=== PATIENT | female | born 1950 | race Caucasian/White ===

== ENCOUNTER 2024-01-02 13:23 | Inpatient (IN) ==
[2024-01-02 14:15] LABS: Basophils # (Auto) 0 K/mcL (0.00-0.30); Basophils % (Auto) 0 % (0.0-2.0); Eosinophils # (Auto) 0.01 K/mcL (0.00-0.70); Eosinophils % (Auto) 0.1 % (0.0-7.0); Hematocrit 31.6 % (34.1-44.9); Hemoglobin 9.8 g/dL (11.2-15.7); Lymphocytes # (Auto) 1.11 K/mcL (1.50-4.80); Lymphocytes % (Auto) 7.8 % (15.5-49.0); Mean Cell Volume 95.8 fL (80.0-100.0); Mean Platelet Volume 9.2 fL (8.8-12.5); Monocytes % (Auto) 7.8 % (1.0-12.0); Neutrophils % (Auto) 83.7 % (38.0-78.0); Platelet Count 288 K/mcL (140-440); WBC 14.2 K/mcL (4.5-11.0)
[2024-01-02 14:40] LABS: ALT/SGPT 26 U/L (<40); AST/SGOT 71 U/L (<32); Albumin 3.4 gm/dL (3.2-5.2); Albumin/Globulin Ratio 1.1 (1.0-2.3); Alkaline Phosphatase 124 U/L (39-117); Bilirubin,Total 0.7 mg/dL (0.1-1.0); Blood Urea Nitrogen 33 mg/dL (8-23); Calcium 9.2 mg/dL (8.6-10.4); Carbon Dioxide 17 mmol/L (22-30); Chloride 100 mmol/L (96-108); Globulin 3.2 gm/dL (2.2-3.7); Glomerular Filtration Rate 10; Glucose 132 mg/dL (70-105); Potassium 4.3 mmol/L (3.3-5.1); Sodium 134 mmol/L (133-145)
[2024-01-02 14:51] LABS: Creatine Kinase 2012 U/L (24-170); INR 1.1 (0.9-1.1); Prothrombin Time 14.1 sec (11.9-14.5)
[2024-01-02] MEDS: 0.9 % SODIUM CHLORIDE 1,000 ML IV ONE ×2 (15:17→17:11)
[2024-01-02 16:21] LABS: Appearance,Urine Turbid (Clear); Bacteria,Urine Few /hpf (0); Bilirubin,Urine Small mg/dL (Negative); Color,Urine Yellow; Culture Indicated,Urine Yes; Glucose,Urine (UA) Negative (Negative); Ketones,Urine Trace mg/dL (Negative); Leukocyte Esterase,Urine Large /uL (Negative); Nitrate,Urine Positive (Negative); PH,Urine 5.5 (5.0-9.0); Protein,Urine >=300 mg/dL (Negative); Urine Blood Moderate ery/mcL (Negative); Urine RBC 0 /hpf (0-3); Urine Squamous Epithelial Cell 2 /hpf (0-4); Urine WBC > 182 /hpf (0-4); Urobilinogen,Urine Normal
[2024-01-02] MEDS: cefTRIAXone 2 GM in DEXTROSE 5% IN WATER 50 ML IV ONE (17:04)
[2024-01-02] MEDS: ACETAMINOPHEN 1,000 MG/100 ML BAG IV ONE (17:10)
[2024-01-02] MEDS: METHOCARBAMOL 750 MG TABLET PO ONE (17:38)
[2024-01-02 18:36] LABS: Blood Urea Nitrogen 33 mg/dL (8-23); Calcium 8.4 mg/dL (8.6-10.4); Carbon Dioxide 17 mmol/L (22-30); Chloride 103 mmol/L (96-108); Glomerular Filtration Rate 11; Glucose 122 mg/dL (70-105); Potassium 4.1 mmol/L (3.3-5.1); Sodium 135 mmol/L (133-145)
[2024-01-02] MEDS: 0.9 % SODIUM CHLORIDE 1,000 ML IV SCH (19:03)
[2024-01-02] MEDS ORDERED: POTASSIUM CHLORIDE 20 MEQ TABLET PO PRN ×2 (19:25)
[2024-01-02] MEDS ORDERED: MAGNESIUM SULFATE 2 GM/50 ML BAG IV PRN (19:25)
[2024-01-02] MEDS ORDERED: POTASSIUM CHLORIDE 40 MEQ in DEXTROSE 5% IN WATER 500 ML IV PRN (19:25)
[2024-01-02] MEDS ORDERED: IPRATROPIUM/ALBUTEROL 3 ML AMPUL.NEB NEB PRN (19:25)
[2024-01-02] MEDS ORDERED: ONDANSETRON 4 MG/2 ML VIAL IV PRN (19:25)
[2024-01-02] MEDS ORDERED: DEXTROSE 31 GM ORAL.SUSP PO PRN (19:31)
[2024-01-02] MEDS ORDERED: DEXTROSE 50% 50 ML VIAL IV PRN (19:31)
[2024-01-02] MEDS ORDERED: LABETALOL HCL 20 MG/4 ML VIAL IV PRN (19:31)
[2024-01-02 20:00] LABS: Phosphorous 4.1 mg/dL (2.5-4.5); Thyroid Stimulating Hormone 2.27 uIU/mL (0.27-5.01)
[2024-01-02] MEDS: MAGNESIUM SULFATE 2 GM/50 ML BAG IV SCH (23:12)
[2024-01-02] MEDS: LACTATED RINGERS 1,000 ML IV SCH (23:12)
[2024-01-02] MEDS: morphine 4 MG/ML VIAL IV PRN (23:13)
[2024-01-02] MEDS: HEPARIN 5,000 UNIT/ML VIAL SQ SCH (23:13)
[2024-01-02] MEDS: SODIUM BICARBONATE 650 MG TABLET PO SCH (23:14)
[2024-01-02] MEDS: INSULIN LISPRO 1 UNIT/0.01 ML UNIT SQ SCH (23:14)
[2024-01-02] MEDS: CEFEPIME 1 GM VIAL IV SCH (23:14)
[2024-01-02] MEDS: 0.9 % SODIUM CHLORIDE 10 ML SYRINGE IV SCH (23:25)
[2024-01-02] MEDS: HYDROcodone/APAP 5/325MG TABLET PO PRN (23:46)
[2024-01-03] MEDS: ACETAMINOPHEN 325 MG TABLET PO PRN (04:33)
[2024-01-03 06:01] LABS: Basophils # (Auto) 0.01 K/mcL (0.00-0.30); Basophils % (Auto) 0.1 % (0.0-2.0); Eosinophils # (Auto) 0.05 K/mcL (0.00-0.70); Eosinophils % (Auto) 0.4 % (0.0-7.0); Hemoglobin 8.3 g/dL (11.2-15.7); Lymphocytes # (Auto) 1.18 K/mcL (1.50-4.80); Lymphocytes % (Auto) 10.3 % (15.5-49.0); Mean Cell Volume 93.9 fL (80.0-100.0); Mean Corpuscular HGB Conc 31.9 g/dL (31.0-36.0); Mean Platelet Volume 9.2 fL (8.8-12.5); Monocytes # (Auto) 0.75 K/mcL (0.10-0.90); Monocytes % (Auto) 6.5 % (1.0-12.0); Neutrophils % (Auto) 81.9 % (38.0-78.0); Platelet Count 244 K/mcL (140-440); RBC 2.77 M/mcL (3.59-5.38); Red Cell Distribution Width 13.2 % (11.5-14.5); WBC 11.5 K/mcL (4.5-11.0)
[2024-01-03 06:42] LABS: ALT/SGPT 22 U/L (<40); AST/SGOT 63 U/L (<32); Albumin 2.8 gm/dL (3.2-5.2); Alkaline Phosphatase 111 U/L (39-117); Bilirubin,Direct 0.2 mg/dL (<0.3); Bilirubin,Total 0.4 mg/dL (0.1-1.0); Blood Urea Nitrogen 33 mg/dL (8-23); Calcium 8.3 mg/dL (8.6-10.4); Carbon Dioxide 15 mmol/L (22-30); Chloride 107 mmol/L (96-108); Globulin 2.7 gm/dL (2.2-3.7); Glomerular Filtration Rate 13; Glucose 125 mg/dL (70-105); Lactate Dehydrogenase 175 U/L (135-225); Phosphorous 4.2 mg/dL (2.5-4.5); Sodium 136 mmol/L (133-145); Triglycerides 165 mg/dL (<150)
[2024-01-03] MEDS: CARVEDILOL 12.5 MG TABLET PO SCH (09:02)
[2024-01-03] MEDS: LEVOTHYROXINE 25 MCG TABLET PO SCH (09:02)
[2024-01-03] MEDS: DULoxetine 30 MG CAPSULE PO SCH (09:02)
[2024-01-03] MEDS: ATORVASTATIN 40 MG TABLET PO SCH (09:02)
[2024-01-03] MEDS: risperiDONE 0.25 MG TABLET PO SCH (09:03)
[2024-01-03] MEDS: SODIUM BICARBONATE VIAL 150 MEQ in WATER FOR INJECTION,STERILE 850 ML IV STA (09:16)
[2024-01-03] MEDS: ALPRAZolam 0.25 MG TABLET PO PRN (20:07)
[2024-01-03] MEDS: OMEPRAZOLE 20 MG CAPSULE PO SCH (20:19)
[2024-01-03] MEDS: PREGABALIN 25 MG CAPSULE PO SCH (20:19)
[2024-01-04 06:47] LABS: Basophils # (Auto) 0.01 K/mcL (0.00-0.30); Basophils % (Auto) 0.1 % (0.0-2.0); Eosinophils % (Auto) 0.9 % (0.0-7.0); Hematocrit 27.3 % (34.1-44.9); Hemoglobin 8.7 g/dL (11.2-15.7); Lymphocytes % (Auto) 9.4 % (15.5-49.0); Mean Cell Volume 93.5 fL (80.0-100.0); Mean Corpuscular HGB Conc 31.9 g/dL (31.0-36.0); Mean Platelet Volume 9.5 fL (8.8-12.5); Monocytes # (Auto) 0.71 K/mcL (0.10-0.90); Monocytes % (Auto) 6.1 % (1.0-12.0); Neutrophils % (Auto) 82.9 % (38.0-78.0); Platelet Count 258 K/mcL (140-440); RBC 2.92 M/mcL (3.59-5.38); WBC 11.7 K/mcL (4.5-11.0)
[2024-01-04 07:18] LABS: ALT/SGPT 27 U/L (<40); AST/SGOT 64 U/L (<32); Albumin 2.7 gm/dL (3.2-5.2); Albumin/Globulin Ratio 1.4 (1.0-2.3); Alkaline Phosphatase 154 U/L (39-117); Bilirubin,Direct 0.3 mg/dL (<0.3); Bilirubin,Total 0.5 mg/dL (0.1-1.0); Blood Urea Nitrogen 31 mg/dL (8-23); Calcium 8.1 mg/dL (8.6-10.4); Carbon Dioxide 20 mmol/L (22-30); Chloride 101 mmol/L (96-108); Glomerular Filtration Rate 21; Glucose 136 mg/dL (70-105); Lactate Dehydrogenase 193 U/L (135-225); Phosphorous 3.8 mg/dL (2.5-4.5); Potassium 3.6 mmol/L (3.3-5.1); Sodium 135 mmol/L (133-145); Triglycerides 168 mg/dL (<150)
[2024-01-04] MEDS: LACTATED RINGERS 1,000 ML IV SCH (08:39)
[2024-01-04] MEDS: LEVOFLOXACIN 750 MG/150 ML BAG IV SCH (10:20)
[2024-01-04] MEDS ORDERED: BENZOCAINE/MENTHOL 1 LOZENGE PO PRN (23:06)
[2024-01-05 06:44] LABS: Basophils # (Auto) 0.01 K/mcL (0.00-0.30); Basophils % (Auto) 0.1 % (0.0-2.0); Eosinophils # (Auto) 0.19 K/mcL (0.00-0.70); Eosinophils % (Auto) 2.1 % (0.0-7.0); Hematocrit 25.3 % (34.1-44.9); Hemoglobin 8.2 g/dL (11.2-15.7); Lymphocytes # (Auto) 1.27 K/mcL (1.50-4.80); Lymphocytes % (Auto) 13.7 % (15.5-49.0); Mean Corpuscular HGB Conc 32.4 g/dL (31.0-36.0); Mean Platelet Volume 9.4 fL (8.8-12.5); Monocytes # (Auto) 0.72 K/mcL (0.10-0.90); Monocytes % (Auto) 7.8 % (1.0-12.0); Neutrophils % (Auto) 74.7 % (38.0-78.0); Platelet Count 286 K/mcL (140-440); RBC 2.72 M/mcL (3.59-5.38); Red Cell Distribution Width 13.1 % (11.5-14.5); WBC 9.2 K/mcL (4.5-11.0)
[2024-01-05 06:59] LABS: Creatine Kinase 473 U/L (24-170)
[2024-01-05 07:12] LABS: ALT/SGPT 28 U/L (<40); AST/SGOT 53 U/L (<32); Albumin 2.6 gm/dL (3.2-5.2); Albumin/Globulin Ratio 1.2 (1.0-2.3); Alkaline Phosphatase 182 U/L (39-117); Bilirubin,Total 0.3 mg/dL (0.1-1.0); Blood Urea Nitrogen 25 mg/dL (8-23); Calcium 8.2 mg/dL (8.6-10.4); Carbon Dioxide 21 mmol/L (22-30); Chloride 103 mmol/L (96-108); Globulin 2.2 gm/dL (2.2-3.7); Glomerular Filtration Rate 29; Glucose 156 mg/dL (70-105); Potassium 3.5 mmol/L (3.3-5.1); Sodium 137 mmol/L (133-145)
[2024-01-06] MEDS: traMADol 50 MG TABLET PO PRN (05:14)
[2024-01-06 07:14] LABS: Basophils # (Auto) 0.02 K/mcL (0.00-0.30); Basophils % (Auto) 0.3 % (0.0-2.0); Eosinophils # (Auto) 0.22 K/mcL (0.00-0.70); Eosinophils % (Auto) 2.9 % (0.0-7.0); Hematocrit 27.5 % (34.1-44.9); Hemoglobin 8.9 g/dL (11.2-15.7); Lymphocytes # (Auto) 1.26 K/mcL (1.50-4.80); Lymphocytes % (Auto) 16.8 % (15.5-49.0); Mean Cell Volume 93.2 fL (80.0-100.0); Mean Corpuscular HGB Conc 32.4 g/dL (31.0-36.0); Mean Platelet Volume 9.7 fL (8.8-12.5); Monocytes # (Auto) 0.65 K/mcL (0.10-0.90); Monocytes % (Auto) 8.7 % (1.0-12.0); Neutrophils % (Auto) 69.2 % (38.0-78.0); Platelet Count 317 K/mcL (140-440); RBC 2.95 M/mcL (3.59-5.38); Red Cell Distribution Width 13.3 % (11.5-14.5); WBC 7.5 K/mcL (4.5-11.0)
[2024-01-06] MEDS: LEVOFLOXACIN 750 MG TABLET PO SCH (07:27)
[2024-01-06 08:14] LABS: ALT/SGPT 38 U/L (<40); AST/SGOT 74 U/L (<32); Albumin 2.7 gm/dL (3.2-5.2); Albumin/Globulin Ratio 0.9 (1.0-2.3); Alkaline Phosphatase 275 U/L (39-117); Bilirubin,Total 0.3 mg/dL (0.1-1.0); Blood Urea Nitrogen 23 mg/dL (8-23); Calcium 8.8 mg/dL (8.6-10.4); Carbon Dioxide 21 mmol/L (22-30); Chloride 107 mmol/L (96-108); Globulin 3.1 gm/dL (2.2-3.7); Glomerular Filtration Rate 37; Glucose 114 mg/dL (70-105); Potassium 3.7 mmol/L (3.3-5.1); Sodium 140 mmol/L (133-145)
[2024-01-06 12:25] VITALS: TEMP 96.4; O2SAT 95
== END 2024-01-06 13:22 | DRG 872 ==
LOC: ED 13:23 → MEDSUR 21:57
PROVIDERS: ADMIT Internal Medicine; ATTEND Internal Medicine